=== PATIENT | female | born 1970 | race Caucasian/White ===

== ENCOUNTER 2017-08-25 14:05 | Emergency (ER) | payer MEDICAID ==
[2017-08-25 14:29] VITALS: BMI 42.0
[2017-08-25 14:38] VITALS: TEMP 97.8; O2SAT 100
--- NOTE | 2017-08-25 14:56 | ED PDOC ---
Arrival/HPI - General Chief Complaint: Lower Extremity Problem/Injury Time Seen by Provider: 08/25/17 14:30 Historian: Patient - History of Present Illness Narrative History of Present Illness (Text): 08/25/17 14:56 47yo female with no PMHx who present with complaint of left hip pain. she reports chronic history of left knee pain and have seen orthopedist for the pain. States she is scheduled for left knee surgery. She started having pain on the hip recently. Pain is constant, but worse with some movement. States she saw her PMD and was referred to ED for xray of the hip. She takes Ibuprofen intermittently for the pain. She denies trauma, focal weakness, back pain, abdominal pain, urinary/fecal incontinence, any other complaint. Past Medical History - Provider Review Nursing Documentation Reviewed: Yes - Infectious Disease Hx of Infectious Diseases: None - Cardiac Hx Cardiac Disorders: No - Pulmonary Hx Respiratory Disorders: Yes Hx Asthma: Yes - Neurological Hx Neurological Disorder: No - HEENT Hx HEENT Disorder: No - Renal Hx Renal Disorder: No - Endocrine/Metabolic Hx Endocrine Disorders: No - Hematological/Oncological Hx Blood Disorders: No - Integumentary Hx Dermatological Disorder: No - Musculoskeletal/Rheumatological Hx Musculoskeletal Disorders: No - Gastrointestinal Hx Gastrointestinal Disorders: No - Genitourinary/Gynecological Hx Genitourinary Disorders: No - Psychiatric Hx Psychophysiologic Disorder: No Hx Substance Use: No - Surgical History Hx Gastric Bypass Surgery: Yes (2011) Family/Social History - Physician Review Nursing Documentation Reviewed: Yes Family/Social History: Unknown Family HX Smoking Status: Never Smoked Hx Alcohol Use: No Hx Substance Use: No Allergies/Home Meds Allergies/Adverse Reactions: Allergies No Known Allergies Allergy (Verified 08/25/17 14:29) Review of Systems - Physician Review All systems were reviewed & negative as marked: Yes - Review of Systems Constitutional: Normal Eyes: Normal ENT: Normal Respiratory: Normal Cardiovascular: Normal Gastrointestinal: Normal Genitourinary Female: Normal Musculoskeletal: Arthralgias (LEft hip) Skin: Normal Neurological: Normal Endocrine: Normal Hemo/Lymphatic: Normal Psychiatric: Normal Physical Exam Vital Signs Reviewed: Yes Vital Signs Temp Pulse Resp BP Pulse Ox 08/25/17 15:57 69 18 138/79 100 08/25/17 14:37 97.8 F 72 19 143/81 100 Temperature: Afebrile Blood Pressure: Normal Pulse: Regular Respiratory Rate: Normal Appearance: Positive for: Well-Appearing, Non-Toxic, Comfortable Pain Distress: None Mental Status: Positive for: Alert and Oriented X 3 - Systems Exam Head: Present: Atraumatic, Normocephalic Pupils: Present: PERRL Extroacular Muscles: Present: EOMI Conjunctiva: Present: Normal Mouth: Present: Moist Mucous Membranes Neck: Present: Normal Range of Motion Respiratory/Chest: Present: Clear to Auscultation, Good Air Exchange. No: Respiratory Distress, Accessory Muscle Use Cardiovascular: Present: Regular Rate and Rhythm, Normal S1, S2. No: Murmurs Abdomen: No: Tenderness, Distention, Peritoneal Signs Back: Present: Normal Inspection Upper Extremity: Present: Normal Inspection. No: Cyanosis, Edema Lower Extremity: Present: NORMAL PULSES, Normal ROM (Left hip), Neurovascularly Intact. No: Edema, Tenderness, Swelling Neurological: Present: GCS=15, CN II-XII Intact, Speech Normal Skin: Present: Warm, Dry, Normal Color. No: Rashes Psychiatric: Present: Alert, Oriented x 3, Normal Insight, Normal Concentration Medical Decision Making ED Course and Treatment: 08/25/17 16:45 B/L hip xray - Symmetric arthritis of b/l joint. No acute finding' result was DW the pt. She was ambulatory in ED. DC home and referred to her ortho - RAD Interpretation Radiology Orders: 08/25/17 14:33 Hip Bilateral [HIP MIN 3V W/ PELVIS TONYA] [RAD] Stat - Medication Orders Current Medication Orders: Discontinued Medications Tramadol HCl (Ultram) 50 mg PO STAT STA Stop: 08/25/17 14:35 Last Admin: 08/25/17 15:22 Dose: 50 mg [facility] Pain Assessment Document 08/25/17 15:22 SF (Rec: 08/25/17 15:22 SF [facility] [id number]) Pain Reassessment Is this a pain reassessment? Yes Sleep Is patient sleeping during reassessment? No Presence of Pain Presence of Pain Yes Disposition/Present on Arrival - Present on Arrival Any Indicators Present on Arrival: No History of DVT/PE: No History of Uncontrolled Diabetes: No Urinary Catheter: No History of Decub. Ulcer: No History Surgical Site Infection Following: CABG - Mediastinitis, None - Disposition Have Diagnosis and Disposition been Completed?: Yes Diagnosis: Hip pain, left Disposition: HOME/ ROUTINE Disposition Time: 16:50 Patient Plan: Discharge Condition: STABLE Discharge Instructions (ExitCare): Hip Pain Additional Instructions: Follow up with your Doctor/orthopedist Return to ED for any new or worsening symptoms Prescriptions: Ibuprofen [Motrin Tab] 600 mg PO Q6 #15 tab Referrals: Yomi Motley DO [Staff Provider] - Follow up with primary Forms: [employer] (Vietnamese)
[2017-08-25 15:58] VITALS: RESP 18
--- NOTE | 2017-08-25 16:39 | RAD ---
PROCEDURE: Radiographs of the pelvis and bilateral hips HISTORY: Left hip pain COMPARISON: None. FINDINGS: BONES: The pelvic ring is intact. There is no acute displaced fracture or bone destruction. Bone mineralization is normal JOINTS: The hip joint spaces are preserved. There symmetric mild narrowing of the sacroiliac joints with periarticular sclerosis. No osteitis pubis. SOFT TISSUES: Normal. OTHER FINDINGS: None. IMPRESSION: 1. No acute fracture or dislocation. 2. No significant degenerative osteoarthrosis. 3. 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
[2017-08-25 18:12] VITALS: BP 135/80; PULSE 64
== END 2017-08-25 17:00 | disposition home or self-care (01) ==
LOC: ED 14:05
DX: M25.552 Pain in left hip (principal)